=== PATIENT | female | born 1940 | race Caucasian/White ===

== ENCOUNTER 2020-11-20 14:46 | Emergency (ER) | payer MEDICARE ==
[~2020-11-20] VITALS: Ht 157.5 cm; Wt 63.5 kg
--- NOTE | 2020-11-20 15:03 | ED General ---
General Chief Complaint: Cardiac/General Problems Stated Complaint: HYPERTHERMIA Source of Information: Patient Exam Limitations: No Limitations History of Present Illness Date Seen by Provider: Nov 20, 2020 Time Seen by Provider: 15:03 Initial Comments 80-year-old female presents via EMS after having an episode and outdoor festival of feeling flushed, then lightheaded and had to sit down. She was quickly evaluated by rescue personnel and noted to have a low blood pressure 70 systolic. Patient given IV fluids and brought to the ER with modest improvement of her symptoms and on arrival she is feeling better. Patient does not typically have these types of episodes, was feeling fine this morning and prior to this episode. She denied recent illness, fever chills or cough. She denied chest or abdominal pain, nausea or vomiting. Allergies and Home Medications Allergies Coded Allergies: Sulfa (Sulfonamide Antibiotics) (Verified Allergy, Unknown, 11/20/20) lidocaine (Verified Allergy, Unknown, 11/20/20) Patient Home Medication List Home Medication List Reviewed: Yes Review of Systems Review of Systems Constitutional: see HPI; No chills, No fever, No malaise; weakness (episode of) EENTM: no symptoms reported Respiratory: No cough, No short of breath, No wheezing Cardiovascular: No chest pain, No edema, No palpitations, No syncope Gastrointestinal: No abdominal pain, No nausea, No vomiting Musculoskeletal: No back pain, No joint pain Skin: No change in color, No rash Psychiatric/Neurological: Denies Anxiety, Denies Headache, Denies Weakness Past Fketrka-[id number] Hx Patient Social History Tobacco Use?: No Physical Exam Vital Signs Vital Signs - First Documented 11/20/20 14:46 Temp 36.8 Pulse 84 Resp 17 B/P (MAP) 143/84 (103) O2 Delivery Room Air Capillary Refill : Height, Weight, BMI Height: '" Weight: lbs. oz. kg; BMI Method: General Appearance: No Apparent Distress, WD/WN Eyes: Bilateral Eye Normal Inspection, Bilateral Eye PERRL, Bilateral Eye EOMI HEENT: PERRL/EOMI, TMs Normal, Normal ENT Inspection, Pharynx Normal Neck: Non Tender, Supple Respiratory: Chest Non Tender, Lungs Clear, Normal Breath Sounds, No Accessory Muscle Use Cardiovascular: Regular Rate, Rhythm, No Edema, No JVD, Normal Peripheral Pulses Gastrointestinal: Non Tender, Soft Extremity: Normal Capillary Refill, Normal Inspection, Non Tender Neurologic/Psychiatric: Alert, Oriented x3, No Motor/Sensory Deficits, Normal Mood/Affect, delivery tech II-XII Norm as Tested Skin: Normal Color, Warm/Dry Progress/Results/Core Measures Suspected Sepsis SIRS Temperature: Pulse: Respiratory Rate: Laboratory Tests 11/20/20 15:30: White Blood Count 8.2 Blood Pressure / Mean: Laboratory Tests 11/20/20 15:30: Creatinine 1.16, Platelet Count 247, Total Bilirubin 0.4 Results/Orders Lab Results Laboratory Tests Test 11/20/20 15:30 Range/Units White Blood Count 8.2 4.3-11.0 10^3/uL Red Blood Count 4.75 3.80-5.11 10^6/uL Hemoglobin 14.4 11.5-16.0 g/dL Hematocrit 42 35-52 % Mean Corpuscular Volume 89 80-99 fL Mean Corpuscular Hemoglobin 30 25-34 pg Mean Corpuscular Hemoglobin Concent 34 32-36 g/dL Red Cell Distribution Width 12.9 10.0-14.5 % Platelet Count 247 130-400 10^3/uL Mean Platelet Volume 9.5 9.0-12.2 fL Immature Granulocyte % (Auto) 0 % Neutrophils (%) (Auto) 71 42-75 % Lymphocytes (%) (Auto) 21 12-44 % Monocytes (%) (Auto) 6 0-12 % Eosinophils (%) (Auto) 1 0-10 % Basophils (%) (Auto) 1 0-10 % Neutrophils # (Auto) 5.9 1.8-7.8 X 10^3 Lymphocytes # (Auto) 1.7 1.0-4.0 X 10^3 Monocytes # (Auto) 0.5 0.0-1.0 X 10^3 Eosinophils # (Auto) 0.1 0.0-0.3 10^3/uL Basophils # (Auto) 0.0 0.0-0.1 10^3/uL Immature Granulocyte # (Auto) 0.0 0.0-0.1 10^3/uL Sodium Level 141 135-145 MMOL/L Potassium Level 4.0 3.6-5.0 MMOL/L Chloride Level 103 98-107 MMOL/L Carbon Dioxide Level 25 21-32 MMOL/L Anion Gap 13 5-14 MMOL/L Blood Urea Nitrogen 20 H 7-18 MG/DL Creatinine 1.16 0.60-1.30 MG/DL Estimat Glomerular Filtration Rate 45 BUN/Creatinine Ratio 17 Glucose Level 182 H 70-105 MG/DL Calcium Level 9.1 8.5-10.1 MG/DL Corrected Calcium 8.9 8.5-10.1 MG/DL Total Bilirubin 0.4 0.1-1.0 MG/DL Aspartate Amino Transf (AST/SGOT) 23 5-34 U/L Alanine Aminotransferase (ALT/SGPT) 18 0-55 U/L Alkaline Phosphatase 46 40-136 U/L Total Protein 6.8 6.4-8.2 GM/DL Albumin 4.3 3.2-4.5 GM/DL My Orders Orders - GEO MORRIS DO Urinalysis (11/20/20 15:20) Cbc With Automated Diff (11/20/20 15:20) Comprehensive Metabolic Panel (11/20/20 15:20) Vital Signs/I&O 11/20/20 14:46 Temp 36.8 Pulse 84 Resp 17 B/P (MAP) 143/84 (103) O2 Delivery Room Air Capillary Refill : Progress Note : Progress Note Uneventful ER stay, patient completely recovered and asymptomatic. Review of labs with normal CBC and comprehensive metabolic panel. Discussed follow-up with PCP and or to the ER if symptoms recur. Departure Impression Primary Impression: Vasovagal episode Disposition: 01 HOME, SELF-CARE Condition: Improved Departure-Patient Inst. Patient Instructions: Vasovagal Response (DC) Add. Discharge Instructions: Follow up with your PCP in 1 week for re-evaluation, sooner if symptoms reoccur. Continue your current medications and maintain regular eating and hydration All discharge instructions reviewed with patient and/or family. Voiced understanding. GEO MORRIS DO Nov 20, 2020 15:03
[2020-11-20 15:36] LABS: BASOPHILS % (AUTO) 1 % (0-10); EOSINOPHILS # (AUTO) 0.1 10^3/uL (0.0-0.3); EOSINOPHILS % (AUTO) 1 % (0-10); HEMATOCRIT 42 % (35-52); HEMOGLOBIN 14.4 g/dL (11.5-16.0); LYMPHOCYTES # (AUTO) 1.7 X 10^3 (1.0-4.0); LYMPHOCYTES % (AUTO) 21 % (12-44); MEAN CORPUSCULAR HEMOGLOBIN 30 pg (25-34); MEAN CORPUSCULAR HGB CONC 34 g/dL (32-36); MEAN CORPUSCULAR VOLUME 89 fL (80-99); MEAN PLATELET VOLUME 9.5 fL (9.0-12.2); MONOCYTES # (AUTO) 0.5 X 10^3 (0.0-1.0); MONOCYTES % (AUTO) 6 % (0-12); NEUTROPHILS # (AUTO) 5.9 X 10^3 (1.8-7.8); NEUTROPHILS % (AUTO) 71 % (42-75); PLATELET COUNT 247 10^3/uL (130-400); WHITE BLOOD COUNT 8.2 10^3/uL (4.3-11.0)
[2020-11-20 15:55] LABS: ALBUMIN 4.3 GM/DL (3.2-4.5); BILIRUBIN,TOTAL 0.4 MG/DL (0.1-1.0); CALCIUM 9.1 MG/DL (8.5-10.1); CREATININE SERUM 1.16 MG/DL (0.60-1.30); TOTAL PROTEIN 6.8 GM/DL (6.4-8.2)
[2020-11-20 16:10] VITALS: BP 130/64
== END 2020-11-20 16:10 | disposition home or self-care (01) ==
LOC: ER FS 14:49
DX: R55 Syncope and collapse (principal)
CPT/HCPCS: 36415; 80053; 85025